=== PATIENT | male | born 1980 | race Caucasian/White ===

== ENCOUNTER 2018-12-25 10:00 | Day surgery (SDC) | payer BC ==
[~2018-12-25] VITALS: Ht 185.4 cm; Wt 90.7 kg
[~2018-12-25 10:00] MED LIST: OMEPRAZOLE20 MG PO
--- NOTE | 2018-12-25 10:57 | NUR ---
PATIENT ADMITTED AT 1000. PATIENT WAS CHECKED IN THEN GIVEN A FLEET ENEMA. PATIENT DID EVACUATE HIS BOWEL FOLLOWING THE ENEMA. PATIENT IV STARTED WELL. PATIENT HAD NO QUESTIONS OR COMPLAINTS AT THIS TIME.
--- NOTE | 2018-12-25 11:17 | NUR ---
HEPARIN PULLED AND GIVEN TO THE MEDICAL/SURGERY REGISTERED NURSE PER HIS REQUEST
--- NOTE | 2018-12-25 12:28 | NUR ---
12/25/18 1228 Corrine Corral 1220-PATIENT ARRIVED TO PACU ON 10L MASK NONAROUSABLE. ORAL AIRWAY IN PLACE. PATIENTS RR 10 BREATHING SHALLOW PATIENT SLOWLY REACTS TO VERBAL STIMULI OPENING EYES VERY DROWSY. BACK TO SLEEP. 1225-PATIENT AROUSING OPENING EYES MOVING HANDS TO MOUTH ORAL AIRWAY REMOVED. HOB ELEVATED. PATIENT ENCOURAGED TO TAKE DEEP BREATHES ABLE TO DEMONSTRATE. 6L MASK RR EVEN.
--- NOTE | 2018-12-25 13:30 | NUR ---
PATIENT USED CALL LIGHT. PATIENT STATED HE NEEDED TO URINATE. PATIENT PRODUCED 800ML OF URINE. PATIENT ASSISTED BACK INTO BED. PATIENT ASKED FOR PHONE TO CALL . PATIENT HAD NO OTHER QUESTIONS OR CONCERNS AT THIS TIME. INSTURCTED TO USE CALL LIGHT. CALL LIGHT WITHIN REACH
--- NOTE | 2018-12-25 14:01 | NUR ---
CHECKED IN WITH PATIENT. PATIENT RESTING COMFORTABLY. PATIENT STATES HE HAS CONTACTED HIS FOR TRANSPORT. PATIENT HAS NO QUESTIONS OR COMPLAINTS AT THIS TIME.
--- NOTE | 2018-12-26 05:52 | OR ---
[facility] [address] [place], [place] [address] Signed DATE OF OPERATION: 12/25/2018 SURGEON: Carlos Manuel Redd MD PREOPERATIVE DIAGNOSIS: Perineal subcutaneous lesion. POSTOPERATIVE DIAGNOSIS: Perineal subcutaneous lesion. PROCEDURE: Excision of perineal subcutaneous lesion (4 mm). ESTIMATED BLOOD LOSS: None. 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 The last few weeks, he had trouble with a small carbuncle and/or cyst or lesion on the perineum midway between the base of his scrotum and his anus. He had been on amoxicillin. He said it helped. However, he feels it has never quite gone away. He does not feel that it is associated with the anus or any sense of fullness in the anal canal. He had been asked to see me as a general surgeon. On physical exam, midway between the base of the scrotum and the anus, just a little bit to the right side in the midline, he has a small punctate area, small maybe 3 mm at most. It did not have any sense of fluctuance or tracking on physical exam. We did not perform his rectal exam in the office. He has excellent perianal hygiene. I had a long discussion with Eloina regarding the current findings. He wanted to have that surgically excised and he felt it has been persistent if not recurring. Consequently, we had scheduled him for the OR for an exam under anesthesia as well as excision of small area of subcutaneous lesion. I explained to Eloina the nature of the surgery along with its risks including, but not limited to bleeding, infection, scarring, change in contour of the skin as well as possible recurrent cyst in the same or other locations versus anal fistula. He had expressed understanding and wished to proceed. DESCRIPTION OF PROCEDURE: I met with Eloina in our preop area. He was able to identify the area for me and we marked that appropriately. It seemed to be a little improved since we had seen him in the office. After this, Eloina was taken in the operating room and placed in a prone Electronically Signed By: CARLOS MANUEL REDD MD 12/26/18 0552 PATIENT NAME: ELOINA DAVENPORT OPERATIVE REPORT DATE OF : 80 REPORT #: [id number] PHYSICIAN: CARLOS MANUEL REDD MD PCP: RICHARD AMATO MD REPORT IS CONFIDENTIAL AND NOT TO BE RELEASED WITHOUT AUTHORIZATION [facility] [address] [place], [place] [address] Signed marianela-knife position under general endotracheal tube anesthesia. He was given preoperative antibiotics along with subcutaneous heparin. SCDs were utilized. We made a linear incision over that area and went down around the area. We could palpate a small 3-4 mm lesion underneath the skin. I palpated carefully from anterior midline of anal canal toward this area and I did not feel any fistula tract. We examined the full circumference of the dentate line with the help of the half-garcia retractor and again, no punctate lesion or any fluid or pus or anything in the anterior midline at the level of the dentate line. This lesion did not feel to track down through the sphincter muscles. We carefully came around the lesion with the cautery tip and we felt like it was completely excised. We passed it off the field for the Pathology Department to examine. The wound was irrigated and suctioned out until clear. We injected local anesthetic in the lesion. The dermis was reapproximated with interrupted 3-0 subcuticular Monocryl sutures. We closed the skin with running 6-0 fast absorbing plain gut suture. Dry gauze was placed along with mesh underwear. Eloina was rotated into the supine position on his hospital bed, weaned from anesthesia, extubated, and taken to recovery room in stable condition. Carlos Manuel Redd MD ALB/MODL /[id number] cc: MD Richard Sims MD Copies: CARLOS MANUEL REDD MD, JONATHAN MD ~ Electronically Signed By: CARLOS MANUEL REDD MD 12/26/18 0552 PATIENT NAME: ELOINA DAVENPORT OPERATIVE REPORT DATE OF : 80 REPORT #: [id number] PHYSICIAN: CARLOS MANUEL REDD MD PCP: RICHARD AMATO MD REPORT IS CONFIDENTIAL AND NOT TO BE RELEASED WITHOUT AUTHORIZATION
--- NOTE | 2018-12-30 14:42 | PATH ---
[facility] [address] [place], [place] [address] Signed SPECIMEN(S): A PERINEAL TISSUE SPECIMEN SOURCE: A. PERINEAL TISSUE CLINICAL HISTORY: EUA; excise perineal cyst. FINAL PATHOLOGIC DIAGNOSIS: Perineal tissue, excision: - Benign fibromuscular tissue with focal hemorrhage. - No cystic structure seen. COMMENT: Multiple levels over 5 slides are examined. ZULYA:cml:C2NR MICROSCOPIC EXAMINATION: Histologic sections of all submitted blocks are examined by light microscopy. These findings, together with the gross examination, support the pathologic diagnosis. GROSS DESCRIPTION: The specimen, labeled "JM, perineal tissue," is received in formalin and consists of a 1.5 x 1.0 x 0.5 cm, irregular portion of thomson-pink and cauterized soft tissue. The specimen is bisected and entirely submitted in cassette (A1). AR (under the direct supervision of a pathologist) The Gross Description was prepared using a voice recognition system. The report was reviewed for accuracy; however, sound-alike word errors, addition and/or deletions may occur. If there is any question about this report, please contact Client Services. PERFORMING LABORATORY: The technical component was performed by [employer], [address] [place] [id number] (Fishing Reel Assembler: Peyton Bravo MD; CLIA# [id number]). [facility] [address] [address] (Fishing Reel Assembler: Cristino Manzo MD; CLIA# [id number]). PATIENT NAME: ELOINA DAVENPORT PATHOLOGY DATE OF : 80 REPORT #: [id number] PHYSICIAN: IVETTE PATHOLOGY PCP: RICHARD AMATO MD REPORT IS CONFIDENTIAL AND NOT TO BE RELEASED WITHOUT AUTHORIZATION [facility] [address] [place], [place] [address] Signed Diagnostician: Cristino Manzo MD Pathologist Electronically Signed 12/30/2018 Copies: ~ PATIENT NAME: ELOINA DAVENPORT PATHOLOGY DATE OF : 80 REPORT #: [id number] PHYSICIAN: IVETTE PATHOLOGY PCP: RICHARD AMATO MD REPORT IS CONFIDENTIAL AND NOT TO BE RELEASED WITHOUT AUTHORIZATION
== END 2018-12-25 14:35 | disposition home or self-care (01) ==
LOC: DS 10:00
PROVIDERS: Colon & Rectal Surgery
PROC: 0WBM0ZZ Excision of Male Perineum, Open Approach (ICD-10-PCS; principal; 2018-12-25 10:30)
DX: M62.89 Other specified disorders of muscle (principal); F41.9 Anxiety disorder, unspecified; F43.9 Reaction to severe stress, unspecified; G89.29 Other chronic pain; Z79.899 Other long term (current) drug therapy; Z87.891 Personal history of nicotine dependence
CPT/HCPCS: J0690; J1100; J1644; J1885; J2250; J2405; J2704; J2765; J3010; J7120

== ENCOUNTER 2019-03-21 08:12 | Emergency (ER) | payer BC ==
[~2019-03-21] VITALS: Ht 185.4 cm; Wt 90.7 kg
--- OUTSIDE RECORDS SUMMARY | ~2019-03-21 | XMS | Clinical Summary ---
Demographics + + + | Address | [address] | | | [place] [address] | + + + | Home Phone | | + + + | Preferred Language | Unknown | + + + | Marital Status | | + + + | Spiritism Affiliation | Unknown | + + + | Race | Unknown | + + + | Ethnic Group | Unknown | + + + Author + + + | Author | [facility] | | | and [place] | + + + | Organization | [facility] | | | and [place] | + + + | Address | Unknown | + + + | Phone | Unavailable | + + + Support + + +---------+ + | Name | Relationship | Address | Phone | + + +---------+ + | Jolly Mohamud | ECON | Unknown | | + + +---------+ + Care Team Providers + +------+ + | Care Coater Operator Insulation Board Name | Role | Phone | + +------+ + | Reji Schuster | PCP | | | MD | | | + +------+ + Allergies No Known Allergies Medications No known medications Active Problems Not on file Social History + + + +--------+------+ | Tobacco Use | Types | Packs/Day | Years | Date | | | | | Used | | + + + +--------+------+ | Former Smoker | Cigarettes | | | | + + + +--------+------+ + +------+---+---+ | Smokeless Tobacco: | Chew | | | | Former User | | | | + +------+---+---+ + + + | Sex Assigned at | Date Recorded | | | | + + + | Not on file | | + + + + + + + | Job Start Date | Occupation | Industry | + + + + | Not on file | Not on file | Not on file | + + + + + + + + | Travel History | Travel Start | Travel End | + + + + + + | No recent travel history available. | + + Last Filed Vital Signs + + + + + | Vital Sign | Reading | Time Taken | Comments | + + + + + | Blood Pressure | 133/82 | 07/04/2018 1:56 PM | | | | | PDT | | + + + + + | Pulse | 80 | 07/04/2018 1:56 PM | | | | | PDT | | + + + + + | Temperature | - | - | | + + + + + | Respiratory Rate | 16 | 07/04/2018 1:56 PM | | | | | PDT | | + + + + + | Oxygen Saturation | - | - | | + + + + + | Inhaled Oxygen | - | - | | | Concentration | | | | + + + + + | Weight | 92.7 kg (204 lb 5.9 | 07/04/2018 1:56 PM | | | | oz) | PDT | | + + + + + | Height | 185.4 cm (6' 1") | 07/04/2018 1:56 PM | | | | | PDT | | + + + + + | Body Mass Index | 26.96 | 07/04/2018 1:56 PM | | | | | PDT | | + + + + + Plan of Treatment + + + + + | Health Maintenance | Due Date | Last Done | Comments | + + + + + | Vaccine: | | | | | Dtap/Tdap/Td (1 - | 0 | | | | Tdap) | | | | + + + + + | Vaccine: Influenza | | 01/22/2018 | | | (#1) | 9 | | | + + + + + Results Not on filefrom Last 3 Months Advance Directives + + + + + | Type | Date Recorded | Patient | Explanation | | | | 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
--- OUTSIDE RECORDS SUMMARY | ~2019-03-21 | XMS | Clinical Summary ---
Demographics + + + | Address | [address] | | | [place] [address] | + + + | Home Phone | | + + + | Preferred Language | Unknown | + + + | Marital Status | | + + + | Buddhist Affiliation | Unknown | + + + | Race | Unknown | + + + | Ethnic Group | Unknown | + + + Author + + + | Author | [facility] | | | and [place] | + + + | Organization | [facility] | | | and [place] | [...] Team Providers + +------+ + | Care Janitorial Assistant Name | Role | Phone | + [...] Patient | Explanation | | | | 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
--- OUTSIDE RECORDS SUMMARY | ~2019-03-21 | XMS | Encounter Summary ---
Demographics + + + | Address | [address] | | | [place] [address] | + + + | Home Phone | | + + + | Preferred Language | Unknown | + + + | Marital Status | | + + + | Jew Affiliation | Unknown | + + + | Race | Unknown | + + + | Ethnic Group | Unknown | + + + Author + + + | Author | [facility] | | | and [place] | + + + | Organization | [facility] | | | and [place] | [...] Team Providers + +------+ + | Care Electric Refrigerator Servicer Name | Role | Phone | + +------+ + | Reji Schuster | PCP | | | MD | | | + +------+ + Encounter Details +--------+---------+ + + + | Date | Type | Department | Care Team | Description | +--------+---------+ + + + | 07/04/ | Office | [facility] | Lamont Castle, | Health examination | | 2019 | Visit | [address]AMS [address] | [address] | of defined | | | | [place] | subpopulation | | | | [phone] | [address] | (Primary Dx) | | | | [phone] | | | +--------+---------+ + + + Social History + + + +--------+------+ | [...] recent travel history available. | + + documented as of this encounter Last Filed Vital Signs + + + [...] | | + + + + + documented in this encounter Progress Notes Lamont Castle MD - 07/04/2018 2:00 PM PDTHe presented for a Second [place] medical exam. 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 He related no active health problems but he does have a significant past medical history. He had a pectus excavatum deformity which was repaired when he was in the eighth grade, at a ge 14. He was granted disability benefits on the basis of a degenerative disc disorder and gastroesophageal reflux. He is on no medications. On examination he appeared to be in excellent health. The only notable finding was a long, transverse, bilateral inframammary surgical scar as a result of repair of his pectus excava amparo. He has a very nice result from that surgery with a symmetrical-appearing chest and onl y a very slight residual depression of the sternum in the midline. I otherwise identified n o abnormal findings on his physical assessment. His urinalysis was normal. Disposition: He was given a second class medical certificate without limitations.Electronic ally signed by Lamont Castle MD at 07/04/2018 2:37 PM PDTdocumented in this encounter Plan of Treatment Not on filedocumented as of this encounter Procedures + +--------+ + + + | Procedure Name | Priori | Date/Time | Associated Diagnosis | Comments | | | ty | | | | + +--------+ + + + | POCT URINALYSIS, | Routin | 07/04/2018 | Health examination | Results for this | | AUTO WITH CONF | e | 2:00 PM | of defined | procedure are in the | | | | PDT | subpopulation | results section. | + +--------+ + + + documented in this encounter Results POCT Urinalysis Dipstick Automated (07/04/2018 2:00 PM PDT) + + + + + + | Component | Value | Ref Range | Performed | Pathologist | | | | | At | Signature | + + + + + + | Color, UA, | Yellow | Yellow, Light | | | | POC | | Yellow | | | + + + + + + | Clarity, | Clear | | | | | UA, POC | | | | | + + + + + + | Glucose, | Negative | Negative | | | | UA, POC | | | | | + + + + + + | Bilirubin, | Negative | Negative | | | | UA, POC | | | | | + + + + + + | Ketones, | Negative | Negative, 100 | | | | UA, POC | | mg/dL | | | + + + + + + | Specific | 1.005 | 1.001 - 1.030 | | | | [place], | | | | | | UA, POC | | | | | + + + + + + | Blood, UA, | Negative | Negative | | | | POC | | | | | + + + + + + | pH, UA, POC | 5.5 | 5.0, 6.0, 7.0, | | | | | | 8.0, 5.5, 6.5, | | | | | | 7.5 | | | + + + + + + | Protein, | Negative | Negative | | | | UA, POC | | | | | + + + + + + | Urobilinoge | 0.2 mg/dL | 0.2, Negative, | | | | n, UA, POC | | Normal, < 0.2 | | | | | | mg/dL, 1 mg/dL, | | | | | | < 0.2 E.U./dl, | | | | | | 1.0 E.U./dL, | | | | | | 0.2 mg/dL | | | + + + + + + | Nitrite, | Negative | Negative | | | | UA, POC | | | | | + + + + + + | Leukocyte | Negative | Negative | | | | Esterase, | | | | | | UA, POC | | | | | + + + + + + | Reducing | | | | | | Substances, | | | | | | Urine | | | | | + + + + + + | Ictotest | | Negative | | | + + + + + + | Remark | | | | | + + + + + + + + | Specimen | + + | Urine | + + documented in this encounter Visit Diagnoses + + | Diagnosis | + + | Health examination of defined subpopulation - Primary | + + documented in this encounter
--- OUTSIDE RECORDS SUMMARY | ~2019-03-21 | XMS | Encounter Summary ---
Demographics + + + | Address | [address] | | | [place] [address] | + + + | Home Phone | | + + + | Preferred Language | Unknown | + + + | Marital Status | | + + + | Yazdanism Affiliation | Unknown | + + + | Race | Unknown | + + + | Ethnic Group | Unknown | + + + Author + + + | Author | [facility] | | | and [place] | + + + | Organization | [facility] | | | and [place] [...] Team Providers + +------+ + | Care Grinder Operator Surface Tool Name | Role | Phone | + +------+ + | Reji Schuster | PCP | | | MD | | | + +------+ + Encounter Details +--------+---------+ + + + | Date | Type | Department | Care Team | Description | +--------+---------+ + + + | 07/04/ | Office | [facility] | Lamont Castle, | Health examination | | 2019 | Visit | [address] [address] | [address] | of defined | | | | [place] | subpopulation | | | | [phone] | [address] | (Primary Dx) | | | | [phone] | | | +--------+---------+ + + + [...] PM PDTHe presented for a Second [place] medical exam. 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 He related no active [...] 1.001 - 1.030 | | | | [place], | | | | | | UA, [...]
== END 2019-03-21 12:07 | disposition home or self-care (01) ==
LOC: ED 08:12
DX: H83.09 Labyrinthitis, unspecified ear (principal)
CPT/HCPCS: 70551; 99284-25

== ENCOUNTER 2019-08-01 18:36 | Emergency (ER) | payer BC ==
[~2019-08-01] VITALS: Ht 185.4 cm; Wt 90.7 kg
[2019-08-01] MEDS ORDERED: LISINOPRIL-HCT1 EACH PO (18:46)
--- NOTE | 2019-08-02 10:57 | EKG ---
[facility] [address] [facility] [place] [address] Signed Normal sinus rhythm Normal ECG When compared with ECG of 13-FEB-2018 13:13, T wave inversion no longer evident in Inferior leads Confirmed by ITA BISHOP MD ([id number]) on 08/02/2019 10:57:39 AM Electronically Signed By: ITA BISHOP MD 08/02/19 1057 PATIENT NAME: ETHELELOINA Electrocardiogram DATE OF : 80 PHYSICIAN: ITA BISHOP MD REPORT #: [id number] REPORT IS CONFIDENTIAL AND NOT TO BE RELEASED WITHOUT AUTHORIZATION
== END 2019-08-01 20:49 | disposition home or self-care (01) ==
LOC: ED 18:36
DX: R07.9 Chest pain, unspecified (principal); K21.9 Gastro-esophageal reflux disease without esophagitis; I10 Essential (primary) hypertension; Z79.899 Other long term (current) drug therapy
CPT/HCPCS: 71046; 80053; 84484; 85025; 93005; 93010; 99285-25